=== PATIENT | female | born 1975 | race Caucasian/White ===

== ENCOUNTER → 2016-11-27 | Outpatient (CLI) | payer BC ==
[~2016-11-27] MED LIST: FIORINAL 50-321 EACH PO; FLEXERIL10 MG PO; IMITREX100 MG PO; LEXAPRO20 MG PO; TOPAMAX50 MG PO; ZOCOR40 MG PO; ZOFRAN4 M1 PO
== END | disposition disaster alternative care site (69) ==
LOC: GBCOE 10:46
DX: Z12.31 Encounter for screening mammogram for malignant neoplasm of breast (principal)
CPT/HCPCS: G0202

== ENCOUNTER → 2016-12-06 | Outpatient (CLI) | payer BC | LOC: GBCOE 13:30 | DX: N63 Unspecified lump in breast (principal); R92.8 Other abnormal and inconclusive findings on diagnostic imaging of breast | CPT/HCPCS: G0206; G0279 ==

== ENCOUNTER → 2016-12-17 | Outpatient (CLI) | payer BC | END | disposition disaster alternative care site (69) | LOC: GPOC 12-13 16:00 → GBCOE 09:24 → GPOC 10:00 | PROC: 0HBU3ZX Excision of Left Breast, Percutaneous Approach, Diagnostic (ICD-10-PCS; principal; 2016-12-17) | DX: N63 Unspecified lump in breast (principal) | CPT/HCPCS: J7050 ==